=== PATIENT | female | born 1970 | race Caucasian/White ===

== ENCOUNTER 2016-03-14 20:07 | Emergency (ER) | payer OTHER ==
[2016-03-14 20:29] VITALS: RESP 18
[2016-03-14] MEDS ORDERED: SODIUM CHLORIDE 0.9% 1,000 ML IV ONE (22:51)
[2016-03-14] MEDS ORDERED: ONDANSETRON 4 MG/2 ML VIAL IVP STA (22:51)
[2016-03-14] MEDS ORDERED: KETOROLAC 30 MG/ML 1 ML VIAL IVP STA (22:51)
--- NOTE | 2016-03-14 22:57 | ED ---
Abdominal Pain HPI - General Chief Complaint: Abdominal Pain Stated Complaint: back pain, poss kidney infection Time Seen by Provider: 03/14/16 22:44 Source: patient, RN notes reviewed Mode of arrival: ambulatory Limitations: no limitations - History of Present Illness Initial Comments: Patient is a 45-year-old female presents to the emergency room for evaluation of right-sided flank pain. Patient states the pain began earlier today. Patient denies any pain or burning during urination, trouble urinating or blood in urine. Patient states she has a history of acute infection in this time. Patient states this feels like either kidney stone/kidney infection. Patient has no fevers or chills. Denies abdominal pain. Patient states she is nauseous. Patient denies constipation or diarrhea. Patient's chest pain or shortness of breath. Patient denies recent trauma or injury to her low back. Patient denies any recent changes in physical activity or heavy lifting. Patient states she took Tylenol with no relief of symptoms. - Related Data Home Medications Medication Instructions Recorded Confirmed Benztropine Mesylate [Cogentin] 1 mg PO BID 02/09/15 03/14/16 Levothyroxine Sodium 25 mcg PO DAILY 02/09/15 03/14/16 [Levothyroxine Sodium] Omeprazole [Omeprazole] 40 mg PO DAILY 02/09/15 03/14/16 Acetaminophen [Tylenol] 500 mg PO Q4-6H PRN 11/05/15 03/14/16 Aclidinium [place] [Tudorza 400 mcg PO BID 11/05/15 03/14/16 Pressair] Ipratropium Nebulized [Atrovent 0.5 mg INHALATION Q6HR 11/05/15 03/14/16 Nebulized] Loratadine [Claritin] 10 mg PO DAILY 11/05/15 03/14/16 Sertraline [Zoloft] 100 mg PO DAILY 11/05/15 03/14/16 Allergies Allergy/AdvReac Type Severity Reaction Status Date / Time propoxyphene napsylate Allergy Unknown Verified 03/14/16 20:29 [From Bobbi-N] naproxen AdvReac Nausea & Verified 03/14/16 20:29 Vomiting Penicillins AdvReac Rash/Hives Verified 03/14/16 20:29 Review of Systems ROS Statement: Those systems with pertinent positive or pertinent negative responses have been documented in the HPI. ROS Other: All systems not noted in ROS Statement are negative. Past Medical History Past Medical History: Asthma, Chest Pain / Angina, COPD, GERD/Reflux, Thyroid Disorder Additional Past Medical History / Comment(s): Bipolar disorder, COPD, anxiety, chronic chest wall pain, ovarian cysts History of Any Multi-Drug Resistant Organisms: None Reported Past Surgical History: Tubal Ligation, Uterine Ablation Additional Past Surgical History / Comment(s): bilateral breast bx Past Psychological History: Anxiety, Bipolar, Depression, Schizophrenia Smoking Status: Current every day smoker Past Alcohol Use History: None Reported Past Drug Use History: None Reported General Exam - General Exam Comments Initial Comments: Sitting in exam room in no acute distress. Limitations: no limitations General appearance: alert, in no apparent distress Head exam: Present: atraumatic, normocephalic, normal inspection Eye exam: Present: normal appearance Pupils: Present: normal accommodation ENT exam: Present: normal exam Neck exam: Present: normal inspection Respiratory exam: Present: normal lung sounds bilaterally. Absent: respiratory distress Cardiovascular Exam: Present: regular rate, normal rhythm, normal heart sounds GI/Abdominal exam: Present: soft, normal bowel sounds. Absent: distended, tenderness, guarding, rebound, rigid Extremities exam: Present: normal inspection Back exam: Present: normal inspection, CVA tenderness (R). Absent: CVA tenderness (L), paraspinal tenderness, vertebral tenderness Neurological exam: Present: alert, oriented X3, CN II-XII intact, normal gait Psychiatric exam: Present: normal affect, normal mood Skin exam: Present: warm, dry, intact, normal color. Absent: rash Course Vital Signs 03/14/16 03/15/16 20:26 00:52 Temperature 98.2 F 97.6 F Pulse Rate 100 81 Respiratory 18 18 Rate Blood Pressure 122/85 129/78 O2 Sat by Pulse 98 98 Oximetry Medical Decision Making - Medical Decision Making Patient is a 45-year-old female since emergency room for evaluation of back pain. Labs show no acute findings. Urinalysis within normal limits. Patient states her pain has improved. Advised patient to follow-up with her primary care provider for reevaluation in 24-48 hours. Patient states she understands everything that was discussed with her. Return parameters discussed. Case discussed with Dr. Hamilton. - Lab Data Result diagrams: 03/14/16 23:06 03/14/16 23:06 Lab Results 03/14/16 03/14/16 03/14/16 Range/Units 23:06 23:06 23:06 WBC 10.0 (3.8-10.6) k/uL RBC 4.34 (3.80-5.40) m/uL Hgb 13.5 (11.4-16.0) gm/dL Hct 40.7 (34.0-46.0) % MCV 93.7 (80.0-100.0) fL MCH 31.2 (25.0-35.0) pg MCHC 33.2 (31.0-37.0) g/dL RDW 12.7 (11.5-15.5) % Plt Count 334 (150-450) k/uL Neutrophils % 55 % Lymphocytes % 36 % Monocytes % 6 % Eosinophils % 1 % Basophils % 1 % Neutrophils # 5.5 (1.3-7.7) k/uL Lymphocytes # 3.6 (1.0-4.8) k/uL Monocytes # 0.6 (0-1.0) k/uL Eosinophils # 0.1 (0-0.7) k/uL Basophils # 0.1 (0-0.2) k/uL Sodium 139 (137-145) mmol/L Potassium 4.3 (3.5-5.1) mmol/L Chloride 101 (98-107) mmol/L Carbon Dioxide 27 (22-30) mmol/L Anion Gap 11 mmol/L BUN 9 (7-17) mg/dL Creatinine 0.74 (0.52-1.04) mg/dL Est GFR (MDRD) Af Amer >60 (>60 ml/min/1.73 sqM) Est GFR (MDRD) Non-Af >60 (>60 ml/min/1.73 sqM) Glucose 95 (74-99) mg/dL Calcium 9.9 (8.4-10.2) mg/dL Total Bilirubin 0.3 (0.2-1.3) mg/dL AST 38 H (14-36) U/L ALT 57 H (9-52) U/L Alkaline Phosphatase 71 (38-126) U/L Total Protein 7.2 (6.3-8.2) g/dL Albumin 4.5 (3.5-5.0) g/dL Amylase 44 (30-110) U/L Lipase 170 (23-300) U/L Urine Color Light Yellow Urine Appearance Clear (Clear) Urine pH 6.0 (5.0-8.0) Ur Specific [place] 1.005 (1.001-1.035) Urine Protein Negative (Negative) Urine Glucose (UA) Negative (Negative) Urine Ketones Negative (Negative) Urine Blood Negative (Negative) Urine Nitrate Negative (Negative) Urine Bilirubin Negative (Negative) Urine Urobilinogen <2.0 (<2.0) mg/dL Ur Leukocyte Esterase Negative (Negative) Disposition Clinical Impression: Back pain Disposition: HOME SELF-CARE Condition: Good Instructions: Acute Low Back Pain (ED) Additional Instructions: Take Tylenol as needed for pain. Warm moist heat. Please follow up with primary care provider in 1-2 days. If any new symptom arises, symptoms worsen or fever develops, return to ER as soon as possible. Referrals: Domi Luo MD [Primary Care Provider] - 1-2 days Time of Disposition: 00:17
[2016-03-14 23:17] LABS: Appearance,Urine Clear (Clear); Basophils # (A) 0.1 k/uL (0-0.2); Basophils % (A) 1 %; Bilirubin,Urine Negative (Negative); CHCM 34.2; Eosinophils # (A) 0.1 k/uL (0-0.7); Eosinophils % (A) 1 %; Glucose,Urine (UA) Negative (Negative); HCT 40.7 % (34.0-46.0); HDW 2.27; HGB 13.5 gm/dL (11.4-16.0); Ketones,Urine Negative (Negative); Leukocyte Esterase,Urine Negative (Negative); Luc # (Auto) 0.11; Luc % (Auto) 1; Lymphocytes # (A) 3.6 k/uL (1.0-4.8); Lymphocytes % (A) 36 %; MCH 31.2 pg (25.0-35.0); MCHC 33.2 g/dL (31.0-37.0); MCV 93.7 fL (80.0-100.0); Mean Platelet Volume 7.6; Monocytes # (A) 0.6 k/uL (0-1.0); Monocytes % (A) 6 %; Neutrophils # (A) 5.5 k/uL (1.3-7.7); Neutrophils % (A) 55 %; Nitrite,Urine Negative (Negative); Protein,Urine Negative (Negative); RBC 4.34 m/uL (3.80-5.40); RDW 12.7 % (11.5-15.5); Specific Gravity,Urine 1.005 (1.001-1.035); UA Billing (MACRO vs. MICRO) CHEM; Urobilinogen,Urine <2.0 mg/dL (<2.0); WBC (Perox) 10.36
[2016-03-14 23:32] LABS: ALT 57 U/L (9-52); AST 38 U/L (14-36); Alkaline Phosphatase 71 U/L (38-126); Amylase 44 U/L (30-110); Anion Gap 11 mmol/L; Blood Urea Nitrogen 9 mg/dL (7-17); Calcium 9.9 mg/dL (8.4-10.2); Carbon Dioxide 27 mmol/L (22-30); Chloride 101 mmol/L (98-107); Glucose 95 mg/dL (74-99); Non-African American GFR(MDRD) >60 (>60 ml/min/1.73 sqM); Potassium 4.3 mmol/L (3.5-5.1); Sodium 139 mmol/L (137-145); Total Bilirubin 0.3 mg/dL (0.2-1.3); Total Protein 7.2 g/dL (6.3-8.2)
[2016-03-15 00:56] VITALS: BP 129/78; PULSE 81; TEMP 97.6
== END 2016-03-15 00:56 | disposition home or self-care (01) ==
LOC: EC 20:07
DX: M54.9 Dorsalgia, unspecified (principal); R11.0 Nausea; J44.9 Chronic obstructive pulmonary disease, unspecified; E07.9 Disorder of thyroid, unspecified; K21.9 Gastro-esophageal reflux disease without esophagitis; F31.9 Bipolar disorder, unspecified; F41.9 Anxiety disorder, unspecified; F17.200 Nicotine dependence, unspecified, uncomplicated; Z79.899 Other long term (current) drug therapy; Z88.5 Allergy status to narcotic agent
CPT/HCPCS: 99284; 96374; 96375; 96361; 36415; 80053; 82150; 83690; 85025; 81003; J2405; J1885

== ENCOUNTER → 2016-07-04 | Outpatient (CLI) | payer OTHER ==
--- NOTE | 2016-07-05 09:06 | USB ---
Reason for exam: follow-up at short interval from prior study. History: Patient history of other cancer. Benign US biopsy breast add'l VAD LT of the left breast, December 01, 2015. Benign US biopsy breast add'l VAD LT of the left breast, December 01, 2015. Benign US biopsy breast VAD RT of the right breast, December 01, 2015. Physical Findings: Nurse Summary: right breast 0.5 x 1cm movable, palpable at 9 o'clock, 0.5 x 0.5cm movable, palpable at 12 o'clock posterior nipple, left breast 1cm x 1cm palpable at 3 o'clock (nurse ts). US Breast BILAT Right breast ultrasound includes all four quadrants, the retroareolar region and axilla. Finding demonstrates a 8 x 6 x 9mm oval, cystic lesion at 9 o'clock, ductal ectasia at the posterior nipple and a 10 x 3 x 10mm oval, solid, hypoechoic lesion at 12 o'clock versus 9 x 4 x 8mm previously for which a 6 month follow up is recommended. The biopsied subareolar mass is no longer seen. Left breast ultrasound includes all four quadrants, the retroareolar region and axilla. Finding demonstrates a 5 x 4 x 5mm oval, cystic lesion at 12 o'clock, a 6 x 5 x 8mm oval, solid lesion at 1 o'clock versus 7 x 7 x 8mm previously, smaller, benign, a 7 x 4 x 5mm oval, cystic lesion at 2 o'clock, a 5 x 4 x 4mm oval, solid lesion at 4 o'clock, biopsied, stable, a 10 x 6 x 11mm oval, solid lesion at 3 o'clock and ductal ectasia the posterior nipple. These results were verbally communicated with the patient and result sheet given to the patient on 07/04/16. ASSESSMENT: Incomplete: need additional imaging evaluation, BI-RAD 0 RECOMMENDATION: Special view mammogram of both breasts. (for annual exam)
--- NOTE | 2016-07-05 09:09 | MM ---
Reason for exam: additional evaluation requested from abnormal screening. Last mammogram was performed 7 months ago. History: Patient history of other cancer. Benign US biopsy breast add'l VAD LT of the left breast, December 01, 2015. Benign US biopsy breast add'l VAD LT of the left breast, December 01, 2015. Benign US biopsy breast VAD RT of the right breast, December 01, 2015. MG Diagnostic Mammo w CAD ORIN Bilateral CC and MLO view(s) were taken. Prior study comparison: December 01, 2015, bilateral MG diagnostic nina BI wo CAD. March 15, 2015, bilateral MG 3d diag mammo w/cad ORIN. March 15, 2015, bilateral US breast BILAT. March 31, 2012, CAD bilateral diagnostic mammogram. September 06, 2010, CAD bilateral diagnostic mammogram. The breast tissue is heterogeneously dense. This may lower the sensitivity of mammography. Previous mammotome biopsy in the right and left breast x 2. Regional calcifications in the right breast are unchanged. 1cm mass posterior 12 o'clock right breast unchanged from 03/15/15 but increased from prior to that. This can be reassessed in 6 months. These results were verbally communicated with the patient and result sheet given to the patient on 07/04/16. ASSESSMENT: Probably benign, BI-RAD 3 RECOMMENDATION: Follow-up diagnostic mammogram and ultrasound of the right breast in 6 months.
== END | disposition home or self-care (01) ==
LOC: RADUSWWP 14:57
PROVIDERS: ATTEND Family Medicine
DX: N60.12 Diffuse cystic mastopathy of left breast (principal); N60.11 Diffuse cystic mastopathy of right breast; R92.8 Other abnormal and inconclusive findings on diagnostic imaging of breast
CPT/HCPCS: 76641; G0204

== ENCOUNTER 2016-07-11 20:51 | Emergency (ER) | payer OTHER ==
[2016-07-11 21:17] VITALS: BP 122/72; PULSE 87; RESP 18; TEMP 98.7
[2016-07-11] MEDS ORDERED: PHENAZOPYRIDINE 100 MG TAB PO STA (21:57)
--- NOTE | 2016-07-11 22:00 | ED ---
General Adult HPI - General Chief complaint: Urogenital Stated complaint: UTI Time Seen by Provider: 07/11/16 21:53 Source: patient, RN notes reviewed Mode of arrival: ambulatory Limitations: no limitations - History of Present Illness Initial comments: Patient 45-year-old female who presents emergency room today with chief complaint of increased urinary frequency with burning sensation. Patient does admit that symptoms started earlier today. She denies any other complaints her symptoms at this time. Patient denies any recent fever, chills, shortness of breath, chest pain, back pain, abdominal pain, nausea or vomiting, numbness or tingling, dysuria or hematuria, constipation or diarrhea, headaches or visual changes, or any other complaints. - Related Data Home Medications Medication Instructions Recorded Confirmed Benztropine Mesylate [Cogentin] 1 mg PO BID 02/09/15 03/14/16 Levothyroxine Sodium 25 mcg PO DAILY 02/09/15 03/14/16 [Levothyroxine Sodium] Omeprazole [Omeprazole] 40 mg PO DAILY 02/09/15 03/14/16 Acetaminophen [Tylenol] 500 mg PO Q4-6H PRN 11/05/15 03/14/16 Aclidinium [place] [Tudorza 400 mcg PO BID 11/05/15 03/14/16 Pressair] Ipratropium Nebulized [Atrovent 0.5 mg INHALATION Q6HR 11/05/15 03/14/16 Nebulized] Loratadine [Claritin] 10 mg PO DAILY 11/05/15 03/14/16 Sertraline [Zoloft] 100 mg PO DAILY 11/05/15 03/14/16 Previous Rx's Medication Instructions Recorded Phenazopyridine [Pyridium] 100 mg PO TID 3 Days 07/11/16 Sulfamethox-Tmp 800-160Mg [Bactrim 1 tab PO Q12HR #14 tab 07/11/16 DS 800-160 mg] Allergies Allergy/AdvReac Type Severity Reaction Status Date / Time haloperidol [From Haldol] Allergy Unknown Verified 07/11/16 21:18 propoxyphene napsylate Allergy Unknown Verified 07/11/16 21:18 [From Darvocet-N] naproxen AdvReac Nausea & Verified 07/11/16 21:18 Vomiting Penicillins AdvReac Rash/Hives Verified 07/11/16 21:18 Review of Systems ROS Statement: Those systems with pertinent positive or pertinent negative responses have been documented in the HPI. ROS Other: All systems not noted in ROS Statement are negative. Past Medical History Past Medical History: Asthma, Chest Pain / Angina, COPD, GERD/Reflux, Thyroid Disorder Additional Past Medical History / Comment(s): Bipolar disorder, COPD, anxiety, chronic chest wall pain, ovarian cysts History of Any Multi-Drug Resistant Organisms: None Reported Past Surgical History: Tubal Ligation, Uterine Ablation Additional Past Surgical History / Comment(s): bilateral breast bx Past Psychological History: Anxiety, Bipolar, Depression, Schizophrenia Smoking Status: Current every day smoker Past Alcohol Use History: None Reported Past Drug Use History: None Reported General Exam - General Exam Comments Initial Comments: General: The patient is awake and alert, in no distress, and does not appear acutely ill. Eye: Pupils are equal, round and reactive to light, extra-ocular movements are intact. No nystagmus. There is normal conjunctiva bilaterally. No signs of icterus. Ears, nose, mouth and throat: There are moist mucous membranes and no oral lesions. Neck: The neck is supple, there is no tenderness or JVD. Cardiovascular: There is a regular rate and rhythm. No murmur, rub or gallop is appreciated. Respiratory: Lungs are clear to auscultation, respirations are non-labored, breath sounds are equal. No wheezes, stridor, rales, or rhonchi. Gastrointestinal: Soft, non-distended, non-tender abdomen without masses or organomegaly noted. There is no rebound or guarding present. No CVA tenderness. Bowel sounds are unremarkable. Musculoskeletal: Normal ROM, no tenderness. Strength 5/5. Sensation intact. Pulses equal bilaterally 2+. Neurological: A&O x 3. CN II-XII intact, There are no obvious motor or sensory deficits. Coordination appears grossly intact. Speech is normal. Skin: Skin is warm and dry and no rashes or lesions are noted. Psychiatric: Cooperative, appropriate mood & affect, normal judgment. Limitations: no limitations Course Vital Signs 07/11/16 21:14 Temperature 98.7 F Pulse Rate 87 Respiratory 18 Rate Blood Pressure 122/72 O2 Sat by Pulse 96 Oximetry Medical Decision Making - Medical Decision Making Urinalysis reviewed and does show 6 white cells. She is symptomatic will be treated with antibiotics. Started on Bactrim here in the Emergency room also given Pyridium for symptoms. - Lab Data Lab Results 07/11/16 07/11/16 Range/Units 21:59 21:59 Urine Color Colorless Urine Appearance Clear (Clear) Urine pH 5.5 (5.0-8.0) Ur Specific [place] 1.001 (1.001-1.035) Urine Protein Negative (Negative) Urine Glucose (UA) Negative (Negative) Urine Ketones Negative (Negative) Urine Blood Trace H (Negative) Urine Nitrite Negative (Negative) Urine Bilirubin Negative (Negative) Urine Urobilinogen <2.0 (<2.0) mg/dL Ur Leukocyte Esterase Moderate H (Negative) Urine WBC 6 H (0-5) /hpf Urine Bacteria Occasional H (None) /hpf Urine HCG, Qual Not Detected (Not Detectd) Disposition Clinical Impression: UTI (urinary tract infection) Disposition: HOME SELF-CARE Condition: Good Instructions: Urinary Tract Infection in Women (ED) Additional Instructions: Please use medication as discussed. Please follow-up with family doctor in the next 2 days of symptoms have not improved. Please return to emergency room if the symptoms increase or worsen or for any other concerns. Prescriptions: Phenazopyridine [Pyridium] 100 mg PO TID 3 Days Sulfamethox-Tmp 800-160Mg [Bactrim DS 800-160 mg] 1 tab PO Q12HR #14 tab Time of Disposition: 22:27
[2016-07-11 22:06] LABS: Appearance,Urine Clear (Clear); Bacteria,Urine Occasional /hpf; Bilirubin,Urine Negative (Negative); Glucose,Urine (UA) Negative (Negative); Ketones,Urine Negative (Negative); Leukocyte Esterase,Urine Moderate (Negative); Nitrite,Urine Negative (Negative); PH, Urine 5.5 (5.0-8.0); Particle Count 1118; Protein,Urine Negative (Negative); Specific Gravity,Urine 1.001 (1.001-1.035); UA Billing (MACRO vs. MICRO) MICRO; Urobilinogen,Urine <2.0 mg/dL (<2.0); WBC,Urine 6 /hpf (0-5)
[2016-07-11] MEDS ORDERED: SULFAMETH-TMP DS STARTER PACK 2 TAB BTL PO STA (22:25)
== END 2016-07-11 22:31 | disposition home or self-care (01) ==
LOC: EC 20:51 → SUPCPDRO 20:51 → EC 22:31
DX: N39.0 Urinary tract infection, site not specified (principal); K21.9 Gastro-esophageal reflux disease without esophagitis; E07.9 Disorder of thyroid, unspecified; J45.909 Unspecified asthma, uncomplicated; J44.9 Chronic obstructive pulmonary disease, unspecified; F32.9 Major depressive disorder, single episode, unspecified; F17.200 Nicotine dependence, unspecified, uncomplicated; Z88.0 Allergy status to penicillin; Z88.5 Allergy status to narcotic agent; Z88.8 Allergy status to other drugs, medicaments and biological substances; Z79.51 Long term (current) use of inhaled steroids; Z79.899 Other long term (current) drug therapy
CPT/HCPCS: 81001; 81025; 87077; 87086; 87186; 99283

== ENCOUNTER 2016-10-17 17:57 | Emergency (ER) | payer OTHER ==
--- NOTE | 2016-10-17 18:59 | ED ---
General Adult HPI - General Chief complaint: Abdominal Pain Stated complaint: UTI Time Seen by Provider: 10/17/16 18:47 Source: patient, RN notes reviewed, old records reviewed Mode of arrival: ambulatory Limitations: no limitations - History of Present Illness Initial comments: This is a 46-year-old female here for evaluation. Patient Edwina for dysuria burning with urination. Patient's concern for kidney stone versus infection. Denies fever no developing a nausea vomiting or diarrhea. - Related Data Home Medications Medication Instructions Recorded Confirmed Benztropine Mesylate [Cogentin] 1 mg PO BID 02/09/15 10/17/16 Levothyroxine Sodium 25 mcg PO DAILY 02/09/15 10/17/16 [Levothyroxine Sodium] Omeprazole [Omeprazole] 20 mg PO DAILY 02/09/15 10/17/16 Acetaminophen [Tylenol] 500 mg PO TID 11/05/15 10/17/16 Aclidinium [place] [Tudorza 1 puff INHALATION RT-BID 11/05/15 10/17/16 Pressair] Ipratropium Nebulized [Atrovent 0.5 mg INHALATION RT-QID PRN 11/05/15 10/17/16 Nebulized] Sertraline [Zoloft] 200 mg PO DAILY 11/05/15 10/17/16 Atorvastatin Calcium [Lipitor] 10 mg PO HS 10/17/16 10/17/16 Budesonide-Formot 160-4.5 Mcg 2 puff INHALATION RT-BID 10/17/16 10/17/16 [Symbicort 160-4.5 Mcg Inhaler] Cholecalciferol (Vitamin D3) 2,000 unit PO DAILY 10/17/16 10/17/16 [Vitamin D3] Divalproex ER [Depakote ER] 1,000 mg PO HS 10/17/16 10/17/16 Docusate [Colace] 100 mg PO Q12H 10/17/16 10/17/16 traZODone HCL 100 mg PO HS 10/17/16 10/17/16 Previous Rx's Medication Instructions Recorded Cephalexin [Keflex] 500 mg PO Q8HR #30 cap 10/17/16 traMADol HCL [Ultram] 50 mg PO Q6HR #30 tab 10/17/16 Allergies Allergy/AdvReac Type Severity Reaction Status Date / Time haloperidol [From Haldol] Allergy Unknown Verified 10/17/16 19:31 propoxyphene napsylate Allergy Unknown Verified 10/17/16 19:31 [From Darvocet-N] naproxen AdvReac Nausea & Verified 10/17/16 19:31 Vomiting Penicillins AdvReac Rash/Hives Verified 10/17/16 19:31 Review of Systems ROS Statement: Those systems with pertinent positive or pertinent negative responses have been documented in the HPI. ROS Other: All systems not noted in ROS Statement are negative. Past Medical History Past Medical History: Asthma, Chest Pain / Angina, COPD, GERD/Reflux, Thyroid Disorder Additional Past Medical History / Comment(s): Bipolar disorder, COPD, anxiety, chronic chest wall pain, ovarian cysts History of Any Multi-Drug Resistant Organisms: None Reported Past Surgical History: Tubal Ligation, Uterine Ablation Additional Past Surgical History / Comment(s): bilateral breast bx Past Psychological History: Anxiety, Bipolar, Depression, Schizophrenia Smoking Status: Current every day smoker Past Alcohol Use History: None Reported Past Drug Use History: None Reported General Exam Limitations: no limitations General appearance: alert, in no apparent distress Head exam: Present: atraumatic, normocephalic, normal inspection Eye exam: Present: normal appearance, PERRL, EOMI. Absent: scleral icterus, conjunctival injection, periorbital swelling ENT exam: Present: normal exam, mucous membranes moist Neck exam: Present: normal inspection. Absent: tenderness, meningismus, lymphadenopathy Respiratory exam: Present: normal lung sounds bilaterally. Absent: respiratory distress, wheezes, rales, rhonchi, stridor Cardiovascular Exam: Present: regular rate, normal rhythm, normal heart sounds. Absent: systolic murmur, diastolic murmur, rubs, gallop, clicks GI/Abdominal exam: Present: soft, normal bowel sounds. Absent: distended, tenderness, guarding, rebound, rigid Extremities exam: Present: normal inspection, full ROM, normal capillary refill. Absent: tenderness, pedal edema, joint swelling, calf tenderness Back exam: Present: normal inspection Neurological exam: Present: alert, oriented X3, CN II-XII intact Psychiatric exam: Present: normal affect, normal mood Skin exam: Present: warm, dry, intact, normal color. Absent: rash Course Vital Signs 10/17/16 10/17/16 10/17/16 18:26 19:31 20:05 Temperature 98.5 F 97.3 F L Pulse Rate 110 H 99 101 H Respiratory 16 18 18 Rate Blood Pressure 120/80 115/65 144/95 O2 Sat by Pulse 96 95 96 Oximetry Medical Decision Making - Medical Decision Making 4060 not ER was UTI type symptoms. Patient has positive urine tract infection will treat dysuria with antibiotics and discharged home - Lab Data Lab Results 10/17/16 Range/Units 19:16 Urine Color Light Yellow Urine Appearance Cloudy H (Clear) Urine pH 6.0 (5.0-8.0) Ur Specific [place] 1.005 (1.001-1.035) Urine Protein Negative (Negative) Urine Glucose (UA) Negative (Negative) Urine Ketones Negative (Negative) Urine Blood Negative (Negative) Urine Nitrite Negative (Negative) Urine Bilirubin Negative (Negative) Urine Urobilinogen <2.0 (<2.0) mg/dL Ur Leukocyte Esterase Negative (Negative) Urine RBC 1 (0-5) /hpf Urine WBC 1 (0-5) /hpf Ur Squamous Epith Cells 10 H (0-4) /hpf Urine Bacteria Moderate H (None) /hpf Urine Mucus Rare H (None) /hpf Disposition Clinical Impression: UTI (urinary tract infection) Disposition: HOME SELF-CARE Condition: Good Instructions: Urinary Tract Infection in Women (ED) Prescriptions: Cephalexin [Keflex] 500 mg PO Q8HR #30 cap traMADol HCL [Ultram] 50 mg PO Q6HR #30 tab Referrals: Domi Luo MD [Primary Care Provider] - 1-2 days
[2016-10-17 19:32] VITALS: RESP 18
[2016-10-17 19:32] LABS: Appearance,Urine Cloudy (Clear); Bacteria,Urine Moderate /hpf; Bilirubin,Urine Negative (Negative); Glucose,Urine (UA) Negative (Negative); Ketones,Urine Negative (Negative); Leukocyte Esterase,Urine Negative (Negative); Mucus,Urine Rare /hpf; Nitrite,Urine Negative (Negative); Particle Count 4743; Protein,Urine Negative (Negative); RBC,Urine 1 /hpf (0-5); Specific Gravity,Urine 1.005 (1.001-1.035); Squamous Epithelial Cell,Urine 10 /hpf (0-4); UA Billing (MACRO vs. MICRO) MICRO; Urobilinogen,Urine <2.0 mg/dL (<2.0); WBC,Urine 1 /hpf (0-5)
[2016-10-17] MEDS ORDERED: KETOROLAC 60 MG/2 ML VIAL IM STA (19:37)
[2016-10-17] MEDS ORDERED: CEPHALEXIN 500 MG CAP PO STA (19:37)
[2016-10-17 20:06] VITALS: BP 144/95; PULSE 101; TEMP 97.3
== END 2016-10-17 20:07 | disposition home or self-care (01) ==
LOC: EC 17:57
DX: N39.0 Urinary tract infection, site not specified (principal); J44.9 Chronic obstructive pulmonary disease, unspecified; K21.9 Gastro-esophageal reflux disease without esophagitis; E07.9 Disorder of thyroid, unspecified; F31.9 Bipolar disorder, unspecified; F41.9 Anxiety disorder, unspecified; F17.200 Nicotine dependence, unspecified, uncomplicated; Z88.0 Allergy status to penicillin; Z88.5 Allergy status to narcotic agent; Z88.6 Allergy status to analgesic agent; Z79.51 Long term (current) use of inhaled steroids; Z79.899 Other long term (current) drug therapy
CPT/HCPCS: 81001; 87086; 99284; 96372; J1885

== ENCOUNTER → 2017-05-14 | Outpatient (CLI) | payer OTHER ==
--- NOTE | 2017-05-14 22:33 | US ---
EXAMINATION TYPE: US thyroid st tissue head/neck DATE OF EXAM: 05/14/2017 COMPARISON: 12/01/2013 CLINICAL HISTORY: 46-year-old female R13.13 PHARYNGEAL DYSPHAGIA. Technique: Multiple sonographic images of the thyroid gland are obtained. FINDINGS: Right Lobe: 4.7 x 1.6 x 1.4 cm Overall Parenchyma: homogenous Left Lobe: 4.4 x 1.4 x 1.8 cm Overall Parenchyma: homogeneous Isthmus Thickness: 0.3 cm NODULES RIGHT: # of nodules measured on right: 1 1. 0.4 X 0.3 x 0.3 cm small cyst at the upper pole. Prior size: 0.4 x 0.2 x 0.3 cm LEFT: # of nodules measured on left: 0 ISTHMUS: # of nodules measured in the isthmus: 0 Bilateral neck scanned, no evidence of lymphadenopathy. IMPRESSION: Glandular measurements as above. There is a stable 4 mm cyst in the right lobe.
== END | disposition home or self-care (01) ==
LOC: RADUSWWP 15:44
PROVIDERS: ATTEND Family Medicine
DX: E04.1 Nontoxic single thyroid nodule (principal)
CPT/HCPCS: 76536

== ENCOUNTER → 2017-08-16 | Outpatient (CLI) | payer OTHER ==
--- NOTE | 2017-08-19 08:31 | MM ---
Reason for exam: follow-up at short interval from prior study. Last mammogram was performed 6 months ago. History: Patient history of other cancer. Benign US biopsy breast add'l VAD LT of the left breast, December 01, 2015. Benign US biopsy breast add'l VAD LT of the left breast, December 01, 2015. Benign US biopsy breast VAD RT of the right breast, December 01, 2015. Physical Findings: Nurse did not find any significant physical abnormalities on exam. MG Diagnostic Mammo w CAD ORIN Bilateral CC and MLO view(s) were taken. Prior study comparison: February 26, 2017, right breast MG diagnostic mammo RT w CAD. July 04, 2016, bilateral MG diagnostic mammo w CAD ORIN. The breast tissue is heterogeneously dense. This may lower the sensitivity of mammography. There are benign appearing round, oval, circumscribed cysts all waxing and waning over time, most characteristic of cysts. Benign calcifications. No suspicious abnormality. These results were verbally communicated with the patient and result sheet given to the patient on 08/16/17. ASSESSMENT: Benign, BI-RAD 2 RECOMMENDATION: Routine screening mammogram of both breasts in 1 year.
== END | disposition home or self-care (01) ==
LOC: RADMAMWWP 13:54
PROVIDERS: ATTEND Family Medicine
DX: N60.12 Diffuse cystic mastopathy of left breast (principal); N60.11 Diffuse cystic mastopathy of right breast
CPT/HCPCS: 77066

== ENCOUNTER → 2018-03-10 | Outpatient (CLI) | payer OTHER ==
--- NOTE | 2018-03-10 14:23 | MR ---
EXAMINATION TYPE: MR brain wo con DATE OF EXAM: 03/10/2018 COMPARISON: None. HISTORY: 47-year-old female with Headache TECHNIQUE: Multiplanar, multisequence images of the brain and brainstem were acquired without IV con trast. Diffusion weighted imaging is performed. FINDINGS: No evidence for acute infarction, hemorrhage, mass, mass effect, midline shift, herniation, effacemen t of basal cisterns, or extra-axial fluid collection. The ventricles and sulci are age-appropriate. There is very mild bifrontal cortical atrophy and mild central cerebral atrophy. Major intracranial flow voids are intact. T2/FLAIR weighted sequences show trace burden of right white matter foci particularly in the subcorti cheikh regions of the bifrontal lobes, one on the left measuring 6 mm and 3 on the right. Midline structures demonstrate normal morphology. The craniocervical junction is normal. Small amount of trapped fluid in the inferior left mastoid air cells. Trace mucosal thickening ethmoi d air cells. Globes are intact. IMPRESSION: 1. No acute intracranial abnormality seen. 2. Trace scattered foci of bright white matter change primarily in the subcortical bifrontal lobes. N onspecific findings could relate to early changes of chronic small vessel ischemic disease or chronic migraines. Early demyelinating disease considered less likely given the overall distribution. Clinic ally correlate. 3. Mild generalized cortical atrophy.
--- NOTE | 2018-03-10 14:28 | MR ---
EXAMINATION TYPE: MR angio head wo con DATE OF EXAM: 03/10/2018 COMPARISON: None HISTORY: 47-year-old female Headache TECHNIQUE: High-resolution 3-D [id number] imaging of the [place]. Rotational 3-D reconst ructions generated on a dedicated independent workstation. FINDINGS: The anterior and posterior circulations are patent without significant stenosis or arterial occlusion . Small conical shaped protuberances are present at the origin of the bilateral hypoplastic posterior communicating arteries most compatible with infundibula. No aneurysmal change identified. IMPRESSION: Small conical outpouching from the PCOM origins compatible with small infundibula. No aneurysmal change, significant stenosis, or arterial occlusion seen.
== END | disposition home or self-care (01) ==
LOC: RADMRIMAIN 09:43
PROVIDERS: ATTEND Psychiatry & Neurology Neurology
DX: G44.40 Drug-induced headache, not elsewhere classified, not intractable (principal); R93.0 Abnormal findings on diagnostic imaging of skull and head, not elsewhere classified; G31.9 Degenerative disease of nervous system, unspecified
CPT/HCPCS: 70544; 70551

== ENCOUNTER 2019-03-27 10:59 | Day surgery (SDC) | payer OTHER ==
[2019-03-24 15:54] VITALS: BMI 30.9
[~2019-03-27 10:59] MED LIST: DEXAMETHASONE SOD PHOSPHATE 10 MG/ML 1 ML VIAL IV ONE; HYDROmorphone 0.5 MG/0.5 ML SYRINGE IVP PRN; LACTATED RINGERS 1,000 ML IV SCH; LIDOCAINE 1% 20 ML VIAL (10MG/ML) FOR IV START INTRADERMA PRN; ONDANSETRON 4 MG/2 ML VIAL IVP ONE; Pre Op ABX Message 1 EACH MISC MISCELLANE ONE
[2019-03-27] MEDS ORDERED: LIDOCAINE 1% INJ 10MG/ML (20 ML MDV) ONE (12:38)
[2019-03-27] MEDS ORDERED: PROPOFOL 10 MG/ML 20 ML VIAL IV ONE (12:38)
[2019-03-27] MEDS ORDERED: PHENYLEPHRINE-0.9% NACL SYG 1 MG/10 ML SYRINGE ONE (12:38)
[2019-03-27] MEDS ORDERED: MIDAZOLAM 2 MG/2 ML VIAL ONE (12:38)
[2019-03-27] MEDS ORDERED: fentaNYL (PF) 50 MCG/ML 2 ML AMP ONE (12:38)
[2019-03-27] MEDS ORDERED: LACTATED RINGERS 1,000 ML IV ONE (13:24)
[2019-03-27] MEDS ORDERED: BUPIVACAINE (PF) 0.25% 30 ML VIAL SQ ONE (13:30)
--- NOTE | 2019-03-27 13:38 | P.OP ---
Date of Procedure: 03/27/19 Postoperative Diagnosis: scope left knee PREOPERATIVE DIAGNOSIS: 1. Left knee medial meniscus tear 2. Left knee osteoarthritis, patellofemoral and medial POSTOPERATIVE DIAGNOSIS: 1. Left knee medial meniscus tear, stellate, degenerative 2. Left knee osteoarthritis, medial grade 2, patellofemoral, grade 3 PROCEDURES PERFORMED: 1. Left knee arthroscopy, with partial medial meniscectomy (20)%, posterior horn 2. Left knee arthroscopic chondroplasty, medial and patellofemoral compartment 2. Left knee arthroscopic partial synovectomy ANESTHESIA: mandarin speaking nanny: None COMPLICATIONS: none ESTIMATED BLOOD LOSS: Less than 10 ml DISPOSITION: To post-anesthesia care unit INDICATIONS: Geni is a 48 year old female with a history of left knee pain on the medial side. MRI findings are suspicious for meniscus tear involving the posterior horn of the meniscus medially. Patient presents to the operating room today for arthroscopy with trimming of the meniscus or repair as necessary as well as chondroplasty or smoothing of the articular surfaces. I have explained the procedure in detail as well as potential risks and complications as being inclusive of but not limited to: Bleeding, infection, scarring, discomfort, blood vessel and/or nerve damage, failure to relieve symptoms, persistence or recurrence and/or worsening of symptoms, blood clot, pulmonary embolism, limp, , and other risks, including the need for knee replacement. The consent form has been signed. PROCEDURE: After appropriate consent was obtained, the patient was taken to the operating room and placed supine on the operating table. General anesthesia was initiated. The knee was examined under anesthesia. Medial collateral, lateral collateral, anterior and posterior cruciate ligaments were all intact. Range of motion was 0-130 with mild crepitus in the patellofemoral compartment. Mild effusion but no soft tissue swelling was noted. Prepping and draping of the operative knee was performed in the usual sterile fashion using ChloraPrep. Care was taken that all pressure points were adequately padded. Leg patterson and pneumotourniquet were used. ``Time-out" was called according to JCAHO standards, confirming patient identity, surgical procedure and side. Antibiotics were not adminstered, per protocol. The surgical portals were placed directly next to the patellar tendon medially and laterally. Camera and instruments were carefully inserted into the knee and arthroscopy was performed. Patellofemoral joint was first inspected. Mild synovitis was seen, and was resected where it appeared particularly inflamed. Patellofemoral joint was noted to be arthritic, with grade 3 changes present over 30%. Chondroplasty was performed using a shaver and radiofrequency probe, removing unstable cartilage elements and smoothing the surface to eliminate step-off. Lateral compartment showed normal hyaline cartilage without defect. Lateral meniscus was visualized and probed, the anterior horn showing some mild degenerative fraying. Popliteal hiatus was normal. No loose bodies. Medial compartment was then examined. Medial meniscus tear was noted involving the posterior horn and appeared to be a stellate-type tear after visualization and probing. The meniscus tear was resected using a combination of basket forceps and shaver. Approximately 20% of the meniscus was resected. The remaining meniscus was noted to be intact and stable. Medial compartment hyaline cartilage showed wear changes, grade 2. Shaver was used to smooth the unstable elements and contour the condyle to a smooth surface. Cruciate ligaments were noted to be intact. No loose bodies or ganglion cysts were noted around the cruciate ligaments. Medial and lateral gutters showed no evidence of loose bodies, but some mild synovitis was present and was resected with a shaver. Portals were then closed with 4-0 Monocryl suture. A quantity of Marcaine solution was injected into the knee and around the portal sites. Steri-Strips were applied and tourniquet was deflated. Sterile dressing and light compressive dressing was applied using Webril and SHUBHAM wrap. Patient tolerated the procedure well and taken to recovery room in stable condition. Sponge and needle counts were correct.
[2019-03-27] MEDS ORDERED: ALBUTEROL NEBULIZED 2.5 MG/3 ML INHALATION ONE (13:55)
[2019-03-27 13:59] VITALS: RESP 16; TEMP 96.8
[2019-03-27 14:46] VITALS: BP 132/74; PULSE 98
== END 2019-03-27 14:54 | disposition home or self-care (01) ==
LOC: OR 10:59
PROVIDERS: ATTEND Orthopaedic Surgery
DX: M23.222 Derangement of posterior horn of medial meniscus due to old tear or injury, left knee (principal); M23.242 Derangement of anterior horn of lateral meniscus due to old tear or injury, left knee; M17.0 Bilateral primary osteoarthritis of knee; M65.862 Other synovitis and tenosynovitis, left lower leg; I10 Essential (primary) hypertension; J43.9 Emphysema, unspecified; E78.5 Hyperlipidemia, unspecified; E03.9 Hypothyroidism, unspecified; F17.210 Nicotine dependence, cigarettes, uncomplicated; G47.33 Obstructive sleep apnea (adult) (pediatric); F32.9 Major depressive disorder, single episode, unspecified; G43.009 Migraine without aura, not intractable, without status migrainosus; Z88.0 Allergy status to penicillin; Z88.1 Allergy status to other antibiotic agents; Z88.5 Allergy status to narcotic agent; Z88.6 Allergy status to analgesic agent; Z88.8 Allergy status to other drugs, medicaments and biological substances; Z79.890 Hormone replacement therapy; Z79.899 Other long term (current) drug therapy; Z98.890 Other specified postprocedural states; Z79.82 Long term (current) use of aspirin; Z79.51 Long term (current) use of inhaled steroids; Z98.51 Tubal ligation status; Z97.3 Presence of spectacles and contact lenses; Z87.11 Personal history of peptic ulcer disease; Z82.49 Family history of ischemic heart disease and other diseases of the circulatory system
CPT/HCPCS: 81025; 84703; 29881; J2250; J1100; J2405; J2001; J3010; J2370; J2704

== ENCOUNTER → 2020-01-15 | Outpatient (CLI) | payer OTHER ==
--- NOTE | 2020-01-18 08:50 | MM ---
Reason for exam: screening (asymptomatic). Last mammogram was performed 2 years and 5 months ago. History: Patient history of other cancer. Benign US biopsy breast add'l VAD LT of the left breast, December 01, 2015. Benign US biopsy breast add'l VAD LT of the left breast, December 01, 2015. Benign US biopsy breast VAD RT of the right breast, December 01, 2015. Physical Findings: A clinical breast exam by your physician is recommended on an annual basis and results should be correlated with mammographic findings. MG Screening Mammo w CAD Bilateral CC, MLO, and XCCL view(s) were taken. Prior study comparison: August 16, 2017, bilateral MG diagnostic mammo w CAD ORIN. February 26, 2017, right breast MG diagnostic mammo RT w CAD. The breast tissue is heterogeneously dense. This may lower the sensitivity of mammography. Finding #1: There is a 7 mm equal density (isodense) mass in the upper outer quadrant of the right breast. Finding #2: There are stable typically benign calcifications in both breasts. Previous mammotome biopsy in the right and left breast. There is a chronic nodularity bilaterally. ASSESSMENT: Incomplete: need additional imaging evaluation, BI-RAD 0 RECOMMENDATION: Special view mammogram of the right breast. If lesion persists on supplemental views, image directed ultrasound is recommended. [facility] will attempt to contact patient to return for supplemental views and ultrasound if indicated.
== END | disposition home or self-care (01) ==
LOC: RADMAMWWP 12:22
PROVIDERS: ATTEND Family Medicine
DX: Z12.31 Encounter for screening mammogram for malignant neoplasm of breast (principal)
CPT/HCPCS: 77067

== ENCOUNTER → 2020-01-21 | Outpatient (CLI) | payer OTHER ==
--- NOTE | 2020-01-21 15:00 | MM ---
Reason for exam: additional evaluation requested from abnormal screening. Last mammogram was performed less than 1 month ago. History: Patient history of other cancer. Benign US biopsy breast add'l VAD LT of the left breast, December 01, 2015. Benign US biopsy breast add'l VAD LT of the left breast, December 01, 2015. Benign US biopsy breast VAD RT of the right breast, December 01, 2015. Physical Findings: Nurse Summary: nodule in the right breast at 3 o'clock (nurse ms). MG Work Up Mamm w CAD RT Spot compression CC, spot compression MLO, and ML view(s) were taken of the right breast. Prior study comparison: January 15, 2020, bilateral MG screening mammo w CAD. August 16, 2017, bilateral MG diagnostic mammo w CAD ORIN. December 01, 2015, bilateral MG diagnostic nina BI wo CAD. The breast tissue is heterogeneously dense. This may lower the sensitivity of mammography. No significant new findings when compared with previous films. These results were verbally communicated with the patient and result sheet given to the patient on 01/21/20. ASSESSMENT: Benign, BI-RAD 2 RECOMMENDATION: Return to routine screening mammogram schedule for both breasts.
== END | disposition home or self-care (01) ==
LOC: RADMAMWWP 13:39
PROVIDERS: ATTEND Family Medicine
DX: R92.8 Other abnormal and inconclusive findings on diagnostic imaging of breast (principal)
CPT/HCPCS: 77065

== ENCOUNTER → 2021-07-14 | Outpatient (CLI) | payer OTHER ==
--- NOTE | 2021-07-18 15:32 | MM ---
Reason for Exam: Screening (asymptomatic). Last mammogram was performed 1 year(s) and 6 month(s) ago. Patient History: Menarche at age 16. First Full-Term at age 18. Postmenopausal. Other cancer. 12/01/2015, Benign Core Biopsy on the left side. 12/01/2015, Benign Core Biopsy on the left side. 12/01/2015, Benign Core Biopsy on the right side. Film Views: Bilateral CC views were taken. Bilateral MLO views were taken. Prior Study Comparison: 08/16/2017 Bilateral Diagnostic Mammogram, [facility]. 01/15/2020 Bilateral Screening Mammogram, [facility]. Tissue Density: The breast tissue is heterogeneously dense. This may lower the sensitivity of mammography. Findings: Analyzed By CAD. Questionable new central obscured massed in the right middle breast. There are benign appearing regional, round calcification in the anterior bilateral breasts. Previous mammotome biopsy in the right breast and in the left breast x 2. Chronic nodularity in the right upper outer quadrant and in the left breast anterior position, stable. Overall Assessment: Incomplete: need additional imaging evaluation, BI-RAD 0 Management: Diagnostic Breast Ultrasound of both breasts. [facility] will attempt to contact patient to return for ultrasound.
== END | disposition home or self-care (01) ==
LOC: RADMAMWWP 02-27 08:25
PROVIDERS: ATTEND Obstetrics & Gynecology
DX: Z12.31 Encounter for screening mammogram for malignant neoplasm of breast (principal); Z78.0 Asymptomatic menopausal state
CPT/HCPCS: 77067

== ENCOUNTER → 2021-08-10 | Outpatient (CLI) | payer OTHER ==
--- NOTE | 2021-08-10 15:38 | US ---
EXAMINATION TYPE: US venous doppler duplex UE LT DATE OF EXAM: 08/10/2021 COMPARISON: NONE CLINICAL HISTORY: I80.8 PHLEBITIS AND THROMBOPHLEBITIS,L02.512 CATANEOUS ABCES. SIDE PERFORMED: Left Left Arm: Appears negative for DVT Limited visualization of brachial veins due to IV site Superficial thrombus seen within basilic vein IMPRESSION: 1. Left upper extremity ultrasound negative for deep venous thrombosis. 2. Note is made of some superficial thrombus within the basilic vein.
== END | disposition home or self-care (01) ==
LOC: RADUSWWP 13:22
PROVIDERS: ATTEND Internal Medicine Infectious Disease
DX: I82.612 Acute embolism and thrombosis of superficial veins of left upper extremity (principal)

== ENCOUNTER 2023-03-08 08:35 | Emergency (ER) | payer OTHER ==
[2023-03-08 09:06] VITALS: TEMP 98.4
--- NOTE | 2023-03-08 10:03 | ED ---
General Adult HPI - General Chief complaint: Vaginal Bleeding Stated complaint: vaginal bleeding Time Seen by Provider: 03/08/23 08:52 Source: patient, RN notes reviewed, old records reviewed Mode of arrival: ambulatory Limitations: no limitations - History of Present Illness Initial comments: 52-year-old female presenting with an episode of vaginal bleeding. Patient had previous ablation. She states she does not have normal menstrual cycles. Uncertain about menopause. Denies any pain. Denies rectal bleeding. Denies fever. - Related Data Home Medications Medication Instructions Recorded Confirmed Benztropine Mesylate [Cogentin] 1 mg PO BID 02/09/15 03/24/19 Levothyroxine Sodium 25 mcg PO DAILY 02/09/15 03/24/19 Omeprazole 20 mg PO BID 02/09/15 03/24/19 Aclidinium [place] [Tudorza 1 puff INHALATION RT-BID 11/05/15 03/24/19 Pressair] Sertraline [Zoloft] 200 mg PO DAILY@1700 11/05/15 03/24/19 Atorvastatin Calcium [Lipitor] 20 mg PO DAILY 10/17/16 03/24/19 Cholecalciferol (Vitamin D3) 2,000 unit PO DAILY 10/17/16 03/24/19 [Vitamin D3] Divalproex ER [Depakote ER] 750 mg PO HS 10/17/16 03/24/19 Docusate [Colace] 200 mg PO DAILY PRN 10/17/16 03/27/19 traZODone HCL 50 mg PO HS PRN 10/17/16 03/24/19 Calcium Carbonate [Tums] 500 mg PO QID PRN 03/24/19 03/24/19 Levalbuterol Nebulized [Xopenex 1.25 mg INHALATION TID 03/24/19 03/24/19 Nebulized] Loperamide [Imodium] 2 mg PO QID PRN 03/24/19 03/24/19 Loratadine 10 mg PO DAILY 03/24/19 03/24/19 Metoprolol Succinate [Toprol XL] 25 mg PO DAILY 03/24/19 03/24/19 Prolixin Inj (Unknown Dose) 1 injection INJ Q14D 03/24/19 busPIRone HCl [Buspar] 15 mg PO TID 01/21/20 01/21/20 Previous Rx's Medication Instructions Recorded Hydrocodone/Acetaminophen [[place] 1 - 2 each PO Q6HR PRN #30 tab 03/27/19 5-325] Allergies Allergy/AdvReac Type Severity Reaction Status Date / Time cephalexin [From Keflex] Allergy Rash/Hives Verified 03/08/23 08:48 haloperidol [From Haldol] Allergy Unknown Verified 03/08/23 08:48 propoxyphene napsylate Allergy Unknown Verified 03/08/23 08:48 [From Darvocet-N] naproxen AdvReac Nausea & Verified 03/08/23 08:48 Vomiting Penicillins AdvReac Rash/Hives Verified 03/08/23 08:48 Review of Systems ROS Statement: Those systems with pertinent positive or pertinent negative responses have been documented in the HPI. ROS Other: All systems not noted in ROS Statement are negative. Past Medical History Past Medical History: Asthma, Chest Pain / Angina, COPD, GERD/Reflux, Hyperlipidemia, Hypertension, Musculoskeletal Disorder, Seizure Disorder, Sleep Apnea/CPAP/BIPAP, Thyroid Disorder Additional Past Medical History / Comment(s): Bipolar disorder, anxiety, hx chronic chest wall pain, ovarian cysts. Seizure x1 2010. Lt knee injury. Stage 4 COPD. Uses CPAP. History of Any Multi-Drug Resistant Organisms: None Reported Past Surgical History: Tubal Ligation, Uterine Ablation Additional Past Surgical History / Comment(s): bilateral breast bx. Ablation 2009 est. Past Anesthesia/Blood Transfusion Reactions: Previous Problems w/ Anesthesia Additional Past Anesthesia/Blood Transfusion Reaction / Comment(s): Problem w/ O2 level after general anesthesia 2010 est. Past Psychological History: Anxiety, Bipolar, Depression, Schizophrenia Past Alcohol Use History: None Reported Past Drug Use History: Prescription Drug Abuse - Past Family History Mother Family Medical History: No Reported History General Exam Limitations: no limitations General appearance: alert, in no apparent distress Head exam: Present: atraumatic, normocephalic Eye exam: Present: normal appearance, PERRL Respiratory exam: Present: normal lung sounds bilaterally. Absent: respiratory distress, wheezes Cardiovascular Exam: Present: regular rate, normal rhythm GI/Abdominal exam: Present: soft. Absent: distended, tenderness, guarding External exam: Present: normal external exam. Absent: erythema, lesions, lacerations Speculum exam: Present: vaginal bleeding. Absent: cervical discharge, laceration Extremities exam: Present: normal inspection, normal capillary refill Neurological exam: Present: alert, oriented X3 Psychiatric exam: Present: normal affect, normal mood Skin exam: Present: warm, dry, intact. Absent: cyanosis, diaphoretic Course Vital Signs 03/08/23 03/08/23 08:48 11:49 Temperature 98.4 F Pulse Rate 83 101 H Respiratory 16 18 Rate Blood Pressure 175/91 147/94 O2 Sat by Pulse 98 95 Oximetry Medical Decision Making - Medical Decision Making Was pt. sent in by a medical professional or institution (, PA, BRANCH LIBRARY CLERK, urgent care, hospital, or detention...) When possible be specific @ -No Did you speak to anyone other than the patient for history (EMS, parent, family, police, friend...)? What history was obtained from this source @ -No Did you review nursing and triage notes (agree or disagree)? Why? @ -I reviewed and agree with nursing and triage notes Were old charts reviewed (outside hosp., previous admission, EMS record, old EKG, old radiological studies, urgent care reports/EKG's, detention records)? Report findings @ -No old charts were reviewed Differential Diagnosis (chest pain, altered mental status, abdominal pain women, abdominal pain men, vaginal bleeding, weakness, fever, dyspnea, syncope, headache, dizziness, GI bleed, back pain, seizure, CVA, palpatations, mental health, musculoskeletal)? @ -[Differential Vaginal Bleeding: Spontaneous , threatened , molar , ectopic , bloody show, incompetent cervix, abruptioplacenta, placenta previa, uterine rupture, dysfunctional uterine bleeding, hemorrhage, uterine fibroids, this is not meant to be an all-inclusive list. EKG interpreted by me (3pts min.). @ -As above X-rays interpreted by me (1pt min.). @ -None done CT interpreted by me (1pt min.). @ -None done U/S interpreted by me (1pt. min.). @ -[Ultrasound shows atrophic endometrium without acute findings. What testing was considered but not performed or refused? (CT, X-rays, U/S, labs)? Why? @ -None What meds were considered but not given or refused? Why? @ -None Did you discuss the management of the patient with other professionals (professionals i.e. , PA, BRANCH LIBRARY CLERK, lab, RT, psych nurse, social worker school, home mission worker, teacher, information security officer, renal case manager)? Give summary @ -No Was smoking cessation discussed for >3mins.? @ -No Was critical care preformed (if so, how long)? @ -No Were there social determinants of health that impacted care today? How? (Homelessness, low income, unemployed, alcoholism, drug addiction, transportation, low edu. Level, literacy, decrease access to med. care, residential, rehab)? @ -No Was there de-escalation of care discussed even if they declined (Discuss DNR or withdrawal of care, Hospice)? DNR status @ -No What co-morbidities impacted this encounter? (DM, HTN, Smoking, COPD, CAD, Cancer, CVA, ARF, Chemo, Hep., AIDS, mental health diagnosis, sleep apnea, morbid obesity)? @ -None Was patient admitted / discharged? Hospital course, mention meds given and route, prescriptions, significant lab abnormalities, going to OR and other pertinent info. @ -52-year-old female with one episode of vaginal bleeding. There was a small amount of dark blood in the vaginal canal. No active hemorrhage. No tenderness. Patient's vital signs are stable. Ultrasound was performed which did not identify any acute process. Patient will follow-up with her primary care provider regarding abnormal vaginal bleeding Undiagnosed new problem with uncertain prognosis? @ -No Drug Therapy requiring intensive monitoring for toxicity (Heparin, Nitro, Insulin, Cardizem)? @ -No Were any procedures done? @ -No Diagnosis/symptom? @ -[Vaginal bleeding Acute, or Chronic, or Acute on Chronic? @ -Acute Uncomplicated (without systemic symptoms) or Complicated (systemic symptoms)? @ -default Side effects of treatment? @ -No Exacerbation, Progression, or Severe Exacerbation? @ -No Poses a threat to life or bodily function? How? (Chest pain, [place], [place], pneumonia, PE, COPD, DKA, ARF, appy, cholecystitis, CVA, Diverticulitis, Homicidal, Suicidal, threat to staff... and all critical care pts) @ -No - Lab Data Lab Results 03/08/23 Range/Units 11:14 Urine Color Colorless Urine Appearance Clear (Clear) Urine pH 6.5 (5.0-8.0) Ur Specific Pierre 1.003 (1.001-1.035) Urine Protein Negative (Negative) Urine Glucose (UA) Negative (Negative) Urine Ketones Negative (Negative) Urine Blood Large H (Negative) Urine Nitrite Negative (Negative) Urine Bilirubin Negative (Negative) Urine Urobilinogen <2.0 (<2.0) mg/dL Ur Leukocyte Esterase Negative (Negative) Urine RBC 4 (0-5) /hpf Urine WBC <1 (0-5) /hpf Ur Squamous Epith Cells <1 (0-4) /hpf Urine Bacteria Rare H (None) /hpf Urine Mucus Rare H (None) /hpf Disposition Clinical Impression: Dysfunctional uterine bleeding Disposition: HOME SELF-CARE Condition: Fair Instructions (If sedation given, give patient instructions): Abnormal (Dysfunctional) Uterine Bleeding (ED) Is patient prescribed a controlled substance at d/c from ED?: No Referrals: Domi Luo MD [Primary Care Provider] - 1-2 days Ismael Arredondo MD [STAFF PHYSICIAN] - 1-2 days Time of Disposition: 12:09
--- NOTE | 2023-03-08 11:10 | US ---
EXAMINATION TYPE: US pelvis transvag DATE OF EXAM: 03/08/2023 COMPARISON: NONE CLINICAL INDICATION: Female, 52 years old with history of Vaginal bleeding; Spotting x few days. Hx ablation 2009 TECHNIQUE: . Single transabdominal sonographic image of the pelvis acquired. Transvaginal sonographic images were medically necessary to better assess the following anatomy: Uterus, endometrium, and ovaries Date of LMP: 2009 EXAM MEASUREMENTS: Uterus: 4.5 x 3.1 x 4.0 cm Endometrial Stripe: 0.2 cm Right Ovary: 5.6 x 3.4 x 4.4 cm Left Ovary: 1.8 x 1.3 x 1.3 cm 1. Uterus: Anteverted Heterogenous 2. Endometrium: wnl 3. Right Ovary: Cyst with echogenic foci = 5.5 x 3.3 x 4.3 cm 4. Left Ovary: wnl 5. Bilateral Adnexa: wnl 6. Posterior cul-de-sac: wnl There is 5.5 x 3.3 x 4.3 cm simple appearing thin-walled cyst in the right ovary. IMPRESSION: 1. No abnormal thickening of the endometrium. Atrophy should be considered. 2. There is 5.5 cm simple appearing thin-walled cyst, O-RADS 2 lesion almost certainly benign. Advise follow-up ultrasound in one year time to reassess. MTDD
[2023-03-08 11:31] LABS: Appearance,Urine Clear (Clear); Bacteria,Urine Rare /hpf; Bilirubin,Urine Negative (Negative); Blood,Urine Large (Negative); Color,Urine Colorless; Glucose,Urine (UA) Negative (Negative); Ketones,Urine Negative (Negative); Leukocyte Esterase,Urine Negative (Negative); Mucus,Urine Rare /hpf; Nitrite,Urine Negative (Negative); PH, Urine 6.5 (5.0-8.0); Protein,Urine Negative (Negative); RBC,Urine 4 /hpf (0-5); Specific Gravity,Urine 1.003 (1.001-1.035); Squamous Epithelial Cell,Urine <1 /hpf (0-4); Urobilinogen,Urine <2.0 mg/dL (<2.0); WBC,Urine <1 /hpf (0-5)
[2023-03-08 11:58] VITALS: BP 147/94; PULSE 101; RESP 18
== END 2023-03-08 12:28 | disposition home or self-care (01) ==
LOC: EC 08:35
DX: N93.8 Other specified abnormal uterine and vaginal bleeding (principal); J44.89 Other specified chronic obstructive pulmonary disease; K21.9 Gastro-esophageal reflux disease without esophagitis; E78.5 Hyperlipidemia, unspecified; E07.9 Disorder of thyroid, unspecified; G47.30 Sleep apnea, unspecified; I10 Essential (primary) hypertension; F41.9 Anxiety disorder, unspecified; F31.9 Bipolar disorder, unspecified; Z79.890 Hormone replacement therapy; Z79.899 Other long term (current) drug therapy; Z88.0 Allergy status to penicillin; Z88.6 Allergy status to analgesic agent; Z88.8 Allergy status to other drugs, medicaments and biological substances; Z88.1 Allergy status to other antibiotic agents
CPT/HCPCS: 76830; 76856; 81001; 99284

== ENCOUNTER → 2023-03-12 | Outpatient (CLI) | payer OTHER ==
--- NOTE | 2023-03-17 12:39 | CTL ---
EXAMINATION TYPE: CT Low Dose Lung DATE OF EXAM: 03/12/2023 3:12 PM CLINICAL INDICATION:Female, 52 years old with history of Z12.2 LUNG CA SCREEN F17.210 HX NICOTINE DEP END; Current every day smoker, 1 pack a day x 35 years. , history of tobacco use. COMPARISON: None. This is a baseline study. TECHNIQUE: CT scan of the chest obtained without contrast from approximately the lung apices through the upper abdomen. Axial, coronal and sagittal reformatted images were obtained. Low dose technique w as utilized for nodule screening purposes. CT DLP: 80.8 mGycm, Automated exposure control for dose reduction was used. CT Contrast: IV contrast used: None. Oral contrast used: None. FINDINGS: Lack of intravenous contrast and low dose technique limits the evaluation of the vascular and soft ti ssue structures. LUNGS: No evidence of pulmonary fibrosis. No evidence of focal consolidation or infiltrate. There are emphysematous changes bilaterally, mild to moderate in degree. Nodules: Biapical fibronodular scarring. No discrete nodules of any significant size are demonstrated. PLEURA: No sizeable pleural effusion or pneumothorax. AIRWAY: Central airways are patent. LOWER NECK: No significant findings. MEDIASTINUM: No evidence of enlarged nodes.. HEART: Normal heart size. No significant coronary arterial calcification seen.. No appreciable perica rdial effusion. VASCULATURE: Minimal atherosclerotic calcifications of the aorta. Ascending aorta is 2.7 CM, descend ing is 2.1 CM. Aorta is considered normal in size. Pulmonary trunk measures 2.2 CM, normal in size. Vessels otherwise not further assessed without contrast. SOFT TISSUES/LYMPH NODES: Unremarkable soft tissues. No axillary adenopathy. UPPER ABDOMEN: No significant findings to the extent visualized. MUSCULOSKELETAL: Mild disc degeneration changes are present throughout the thoracolumbar spine. No a cute findings. Remote healed left lateral rib 6 and 5 fractures. Remote healed right lateral rib 3 fracture. IMPRESSION: 1. No clinically significant pulmonary nodules. 2. Mild to moderate pulmonary emphysematous changes. CT LUNG RAD AND CT CHEST RECOMMENDATION: Lung-Rad 1 Negative: Continue annual screening with LDCT in 12 months. C Modifier (Personal history of lung cancer?): No. S Modifier (Other clinically significant or potentially significant findings?): No. Other significant or potentially significant abnormalities: None. Recommend smoking cessation (if current smoker), or continuation of smoking cessation (if prior smoke r). Annual screening for lung cancer with low-dose computed tomography is recommended in adults ages 55 to 77 years who have a 30 pack-year smoking history and currently smoke or have quit within the pa st 15 years. Screening should be discontinued once a person has not smoked for 15 years or develops a health problem that substantially limits life expectancy or the ability or willingness to have curat samuel lung surgery. Lung rads 2021 [email or web address]
== END | disposition home or self-care (01) ==
LOC: RADCTMAIN 14:50
PROVIDERS: ATTEND Internal Medicine Critical Care Medicine
DX: Z12.2 Encounter for screening for malignant neoplasm of respiratory organs (principal); J43.9 Emphysema, unspecified; F17.210 Nicotine dependence, cigarettes, uncomplicated
CPT/HCPCS: 71271

== ENCOUNTER 2023-05-23 14:40 | Emergency (ER) | payer OTHER ==
[2023-05-23 15:09] VITALS: PULSE 94
[2023-05-23] MEDS: LORazepam 2 MG/ML INJ IV STA (16:01)
[2023-05-23 16:15] LABS: Basophils # (A) 0.1 k/uL (0-0.2); Basophils % (A) 1 %; Eosinophils # (A) 0.3 k/uL (0-0.7); Eosinophils % (A) 3 %; HCT 36.4 % (34.0-46.0); HGB 12.5 gm/dL (11.4-16.0); Lymphocytes # (A) 3.1 k/uL (1.0-4.8); Lymphocytes % (A) 31 %; MCH 28.9 pg (25.0-35.0); MCHC 34.3 g/dL (31.0-37.0); MCV 84.1 fL (80.0-100.0); Mean Platelet Volume 7.9; Monocytes # (A) 0.7 k/uL (0-1.0); Monocytes % (A) 7 %; Neutrophils # (A) 5.5 k/uL (1.3-7.7); Neutrophils % (A) 55 %; Platelet Count 397 k/uL (150-450); RBC 4.33 m/uL (3.80-5.40); RDW 13.1 % (11.5-15.5)
[2023-05-23] MEDS: SODIUM CHLORIDE 0.9% 1,000 ML IV ONE (16:15)
[2023-05-23 16:19] LABS: ALT 20 U/L (4-34); AST 24 U/L (14-36); African American GFR (CKD) >90 (>60 ml/min/1.73 sqM); Albumin 4.1 g/dL (3.5-5.0); Alkaline Phosphatase 104 U/L (38-126); Anion Gap 7 mmol/L; Blood Urea Nitrogen 13 mg/dL (7-17); Carbon Dioxide 25 mmol/L (22-30); Chloride 98 mmol/L (98-107); Glucose 95 mg/dL (74-99); Non-African American GFR(CKD) 85 (>60 ml/min/1.73 sqM); Potassium 4.5 mmol/L (3.5-5.1); Sodium 130 mmol/L (137-145); Total Bilirubin 0.3 mg/dL (0.2-1.3); Total Protein 6.6 g/dL (6.3-8.2)
--- NOTE | 2023-05-23 16:35 | ED ---
Anxiety HPI - General Chief Complaint: Anxiety Stated Complaint: anxiety Time Seen by Provider: 05/23/23 15:00 Source: patient Mode of arrival: EMS - History of Present Illness Initial Comments: 52-year-old female who presents to the emergency department with several complaints. States that patient has chronic anxiety and feels like she is having a panic attack. She normally takes Xanax 3 times daily and states this medication has not been controlling her symptoms. She does follow with a therapist. She states that [facility] and the caretakers are not very nice to her. She feels that this causes a lot of her anxiety. Patient takes valproic acid. Is concerned that her levels might not be in range. She also is concerned for dehydration. She states that she has been eating and drinking without issue. No nausea or vomiting. Denies any diarrhea. No recent medication changes. Denies any chest pain or shortness of breath. No fevers chills or cough. No other alleviating, precipitating or modifying factors - Related Data Home Medications: Home Medications Medication Instructions Recorded Confirmed Benztropine Mesylate [Cogentin] 1 mg PO BID 02/09/15 03/24/19 Levothyroxine Sodium 25 mcg PO DAILY 02/09/15 03/24/19 Omeprazole 20 mg PO BID 02/09/15 03/24/19 Aclidinium [place] [Tudorza 1 puff INHALATION RT-BID 11/05/15 03/24/19 Pressair] Sertraline [Zoloft] 200 mg PO DAILY@1700 11/05/15 03/24/19 Atorvastatin Calcium [Lipitor] 20 mg PO DAILY 10/17/16 03/24/19 Cholecalciferol (Vitamin D3) 2,000 unit PO DAILY 10/17/16 03/24/19 [Vitamin D3] Divalproex ER [Depakote ER] 750 mg PO HS 10/17/16 03/24/19 Docusate [Colace] 200 mg PO DAILY PRN 10/17/16 03/27/19 traZODone HCL 50 mg PO HS PRN 10/17/16 03/24/19 Calcium Carbonate [Tums] 500 mg PO QID PRN 03/24/19 03/24/19 Levalbuterol Nebulized [Xopenex 1.25 mg INHALATION TID 03/24/19 03/24/19 Nebulized] Loperamide [Imodium] 2 mg PO QID PRN 03/24/19 03/24/19 Loratadine 10 mg PO DAILY 03/24/19 03/24/19 Metoprolol Succinate [Toprol XL] 25 mg PO DAILY 03/24/19 03/24/19 Prolixin Inj (Unknown Dose) 1 injection INJ Q14D 03/24/19 busPIRone HCl [Buspar] 15 mg PO TID 03/24/19 03/24/19 Previous Rx's Medication Instructions Recorded Hydrocodone/Acetaminophen [[place] 1 - 2 each PO Q6HR PRN #30 tab 03/27/19 5-325] Doxycycline Hyclate 100 mg PO BID #14 tab 05/23/23 Ibuprofen [Motrin] 600 mg PO Q6HR PRN #30 tab 05/23/23 Allergies/Adverse Reactions: Allergies Allergy/AdvReac Type Severity Reaction Status Date / Time cephalexin [From Keflex] Allergy Rash/Hives Verified 05/23/23 15:06 haloperidol [From Haldol] Allergy Unknown Verified 05/23/23 15:06 propoxyphene napsylate Allergy Unknown Verified 05/23/23 15:06 [From Darvocet-N] naproxen AdvReac Nausea & Verified 05/23/23 15:06 Vomiting Penicillins AdvReac Rash/Hives Verified 05/23/23 15:06 Review of Systems ROS Statement: Those systems with pertinent positive or pertinent negative responses have been documented in the HPI. ROS Other: All systems not noted in ROS Statement are negative. Past Medical History Past Medical History: Asthma, Chest Pain / Angina, COPD, GERD/Reflux, Hyperlipidemia, Hypertension, Musculoskeletal Disorder, Seizure Disorder, Sleep Apnea/CPAP/BIPAP, Thyroid Disorder Additional Past Medical History / Comment(s): Bipolar disorder, anxiety, hx chronic chest wall pain, ovarian cysts. Seizure x1 2010. Lt knee injury. Stage 4 COPD. Uses CPAP. History of Any Multi-Drug Resistant Organisms: None Reported Past Surgical History: Tubal Ligation, Uterine Ablation Additional Past Surgical History / Comment(s): bilateral breast bx. Ablation 2009 est. Past Anesthesia/Blood Transfusion Reactions: Previous Problems w/ Anesthesia Additional Past Anesthesia/Blood Transfusion Reaction / Comment(s): Problem w/ O2 level after general anesthesia 2010 est. Past Psychological History: Anxiety, Bipolar, Depression, Schizophrenia Past Alcohol Use History: None Reported Past Drug Use History: Prescription Drug Abuse - Past Family History Mother Family Medical History: No Reported History General Exam Limitations: no limitations General appearance: alert, in no apparent distress Head exam: Present: atraumatic, normocephalic, normal inspection Eye exam: Present: normal appearance, PERRL, EOMI. Absent: scleral icterus, conjunctival injection, periorbital swelling ENT exam: Present: normal exam, mucous membranes moist Neck exam: Present: normal inspection. Absent: tenderness, meningismus, lymphadenopathy Respiratory exam: Present: normal lung sounds bilaterally. Absent: respiratory distress, wheezes, rales, rhonchi, stridor Cardiovascular Exam: Present: regular rate, normal rhythm, normal heart sounds. Absent: systolic murmur, diastolic murmur, rubs, gallop, clicks GI/Abdominal exam: Present: soft, normal bowel sounds. Absent: distended, tenderness, guarding, rebound, rigid Extremities exam: Present: normal inspection, full ROM, normal capillary refill. Absent: tenderness, pedal edema, joint swelling, calf tenderness Back exam: Present: normal inspection Neurological exam: Present: alert, oriented X3, CN II-XII intact Psychiatric exam: Present: normal affect, normal mood Skin exam: Present: warm, dry, intact, normal color. Absent: rash Course Vital Signs 05/23/23 05/23/23 05/23/23 14:46 14:56 15:10 Temperature 97.7 F 97.7 F 98.0 F Pulse Rate 85 94 94 Respiratory 16 16 20 Rate Blood Pressure 130/79 130/79 128/82 O2 Sat by Pulse 95 96 95 Oximetry Medical Decision Making - Medical Decision Making Was pt. sent in by a medical professional or institution (, PA, COURT BAILIFF, urgent care, hospital, or long-term...) When possible be specific @ -No Did you speak to anyone other than the patient for history (EMS, parent, family, police, friend...)? What history was obtained from this source @ -Spoke with EMS Did you review nursing and triage notes (agree or disagree)? Why? @ -I reviewed and agree with nursing and triage notes Were old charts reviewed (outside hosp., previous admission, EMS record, old EKG, old radiological studies, urgent care reports/EKG's, long-term records)? Report findings @ -No old charts were reviewed Differential Diagnosis (chest pain, altered mental status, abdominal pain women, abdominal pain men, vaginal bleeding, weakness, fever, dyspnea, syncope, headache, dizziness, GI bleed, back pain, seizure, CVA, palpatations, mental health, musculoskeletal)? @ -Differential Mental Health Depression, anxiety, bipolar, psychosis, schizophrenia, borderline personality, situational depression, adjustment disorder, behavioral disorder, brain tumor, malingering, substance abuse, encephalopathy, medication reaction, dementia, hypothyroidism, degenerative neurologic disorder, lupus.... This is not meant to be all-inclusive list EKG interpreted by me (3pts min.). @Not done X-rays interpreted by me (1pt min.). @ -None done CT interpreted by me (1pt min.). @ -None done U/S interpreted by me (1pt. min.). @ -None done What testing was considered but not performed or refused? (CT, X-rays, U/S, labs)? Why? @ -None What meds were considered but not given or refused? Why? @ -None Did you discuss the management of the patient with other professionals (professionals i.e. , PA, COURT BAILIFF, lab, RT, psych nurse, director of social work, gre instructor, teacher, safety and security officer, insurance case manager)? Give summary @ -No Was smoking cessation discussed for >3mins.? @ -No Was critical care preformed (if so, how long)? @ -No Were there social determinants of health that impacted care today? How? (Homelessness, low income, unemployed, alcoholism, drug addiction, transportation, low edu. Level, literacy, decrease access to med. care, fdc, rehab)? @ -Patient has low literacy level Was there de-escalation of care discussed even if they declined (Discuss DNR or withdrawal of care, Hospice)? DNR status @ -No What co-morbidities impacted this encounter? (DM, HTN, Smoking, COPD, CAD, Cancer, CVA, ARF, Chemo, Hep., AIDS, mental health diagnosis, sleep apnea, morbid obesity)? @ -Bipolar, anxiety, seizure disorder Was patient admitted / discharged? Hospital course, mention meds given and route, prescriptions, significant lab abnormalities, going to OR and other pertinent info. @ -Upon arrival patient was seen and evaluated in room 18. Thorough history and physical exam was performed. IV access was established. Patient was given a liter bolus normal saline. Laboratory studies are conducted including valproic acid level. She was given 1 mg of Ativan. Patient reports that she feels much improved at this time. Laboratory studies are within normal limits. Patient will be discharged home and instructed to follow-up with her primary care doctor. Return for any new or worsening symptoms Undiagnosed new problem with uncertain prognosis? @ -No Drug Therapy requiring intensive monitoring for toxicity (Heparin, Nitro, Insulin, Cardizem)? @ -No Were any procedures done? @ -No Diagnosis/symptom? @ -Acute panic attack, history of anxiety Acute, or Chronic, or Acute on Chronic? @ -Acute Uncomplicated (without systemic symptoms) or Complicated (systemic symptoms)? @ -Complicated Side effects of treatment? @ -No Exacerbation, Progression, or Severe Exacerbation? @ -Yes Poses a threat to life or bodily function? How? (Chest pain, [place], MA, pneumonia, PE, COPD, DKA, ARF, appy, cholecystitis, CVA, Diverticulitis, Homicidal, Suicidal, threat to staff... and all critical care pts) @ -No - Lab Data Result diagrams: 05/23/23 15:47 05/23/23 15:47 Lab Results 05/23/23 05/23/23 Range/Units 15:47 15:47 WBC 10.0 (3.8-10.6) k/uL RBC 4.33 (3.80-5.40) m/uL Hgb 12.5 (11.4-16.0) gm/dL Hct 36.4 (34.0-46.0) % MCV 84.1 (80.0-100.0) fL MCH 28.9 (25.0-35.0) pg MCHC 34.3 (31.0-37.0) g/dL RDW 13.1 (11.5-15.5) % Plt Count 397 (150-450) k/uL MPV 7.9 Neutrophils % 55 % Lymphocytes % 31 % Monocytes % 7 % Eosinophils % 3 % Basophils % 1 % Neutrophils # 5.5 (1.3-7.7) k/uL Lymphocytes # 3.1 (1.0-4.8) k/uL Monocytes # 0.7 (0-1.0) k/uL Eosinophils # 0.3 (0-0.7) k/uL Basophils # 0.1 (0-0.2) k/uL Sodium 130 L (137-145) mmol/L Potassium 4.5 (3.5-5.1) mmol/L Chloride 98 (98-107) mmol/L Carbon Dioxide 25 (22-30) mmol/L Anion Gap 7 mmol/L BUN 13 (7-17) mg/dL Creatinine 0.80 (0.52-1.04) mg/dL Est GFR (CKD-EPI)AfAm >90 (>60 ml/min/1.73 sqM) Est GFR (CKD-EPI)NonAf 85 (>60 ml/min/1.73 sqM) Glucose 95 (74-99) mg/dL Calcium 10.0 (8.4-10.2) mg/dL Total Bilirubin 0.3 (0.2-1.3) mg/dL AST 24 (14-36) U/L ALT 20 (4-34) U/L Alkaline Phosphatase 104 (38-126) U/L Total Protein 6.6 (6.3-8.2) g/dL Albumin 4.1 (3.5-5.0) g/dL Valproic Acid 82.0 ug/mL Disposition Clinical Impression: Acute anxiety Disposition: HOME SELF-CARE Condition: Stable Instructions (If sedation given, give patient instructions): Generalized Anxiety Disorder (ED) Additional Instructions: Please follow up with your PCP in 2-4 days and return for any new worsening symptoms. Prescriptions: Doxycycline Hyclate 100 mg PO BID #14 tab Ibuprofen [Motrin] 600 mg PO Q6HR PRN #30 tab PRN Reason: Pain Is patient prescribed a controlled substance at d/c from ED?: No Referrals: Domi Luo MD [Primary Care Provider] - 1-2 days Time of Disposition: 16:35
[2023-05-23 17:57] VITALS: BP 128/82; RESP 20; TEMP 98
== END 2023-05-23 15:15 | disposition home or self-care (01) ==
LOC: EC 14:40
DX: F41.0 Panic disorder [episodic paroxysmal anxiety] (principal); F31.9 Bipolar disorder, unspecified; G40.909 Epilepsy, unspecified, not intractable, without status epilepticus; Z79.899 Other long term (current) drug therapy; Z88.0 Allergy status to penicillin; Z88.1 Allergy status to other antibiotic agents; Z88.6 Allergy status to analgesic agent; Z88.8 Allergy status to other drugs, medicaments and biological substances
CPT/HCPCS: 36415; 80164; 80053; 85025; 99284; 96374; 96361; J2060

== ENCOUNTER → 2024-03-02 | Outpatient (CLI) | payer OTHER | END | disposition home or self-care (01) | LOC: RADNMMAIN 08:33 | PROVIDERS: ATTEND Internal Medicine | DX: Z53.9 Procedure and treatment not carried out, unspecified reason (principal) ==